=== PATIENT | female | born 2000 | race Two or more races ===

== ENCOUNTER 2024-11-07 18:20 | Emergency (ER) | payer MEDICAID, SELFPAY ==
[2024-11-07] VITALS (7 sets, daily range): BP systolic 106–119; BP diastolic 57–79; PULSE 60–104; RESP 13–22; TEMP 37.2–38.2; O2SAT 95–100; BMI 27.4
--- NOTE | 2024-11-07 18:20 | PC.NURSE ---
pt here with c/o body ache, headache, fever and chills that statred today and s/p on 10-11-24
--- NOTE | 2024-11-07 18:29 | XR_ITS ---
Examination: AP chest single view Technique one AP portable upright chest single view Standing time: 10 weight 32,025 1846 hours INDICATIONS: Sepsis today. FINDINGS: Suspicious for early right medial base pneumonia Normal heart size Intact osseous structures IMPRESSION: Suspicious for early right base pneumonia
--- NOTE | 2024-11-07 18:29 | EKG_ITS ---
[facility] Test Date: 2024-11-07 Pat Name: ANTHONY GOLDEN Department: Room: - Gender: Female Putty Patcher: : 2000 Requested By: Yohana Erazo Order Number: [id number] Reading MD: Yohana Erazo Measurements Intervals Richards Rate: 91 P: [place]: QRS: 83 QRSD: 96 T: 80 QT: 337 QTc: 416 Interpretive Statements ATRIAL FIBRILLATION MODERATE ST DEPRESSION [0.05+ mV ST DEPRESSION] Compared to ECG 05/31/2024 19:49:04 ST (T wave) deviation now present Sinus rhythm no longer present /store/S0/[id number]/ecg/[id number].pdf
--- NOTE | 2024-11-07 18:31 | PD.EDADULT ---
ED General RME/HPI General Chief complaint: Flu Like Symptoms Stated complaint: BODY PAIN,MACIAS, FEVER, CHILLS, S/P 10/11/24 Time Seen by Provider: 11/07/24 18:28 Arrival date/time: 11/07/24 18:20 RME / HPI RME / HPI narrative: 24-year-old female patient came in for evaluation regarding general body aches. Onset of symptoms about 3 hours prior to ER visit as generalized body aches, headache, nonproductive cough, chills, and in the triage was noted to have fever and tachycardic.'s maternal sepsis alert was initiated right away. Patient has section done 3 weeks ago. Denies any abdominal pain denies any dysuria denies any abnormal fall vaginal discharges. No medication was taken prior travel. Related Data Home Medications ?Medication ?Instructions ?Recorded ?Confirmed vit no.95-ferrous 1 tab PO QDAY 07/25/19 07/25/19 fumarate 28 mg-folic acid 800 mcg tablet () Previous Rx's ?Medication ?Instructions ?Recorded hydrocodone 5 mg-acetaminophen 325 1 tab PO QID PRN pain #30 tabs 07/27/19 mg tablet ([place]) artificial tears(hypromellose) 0.5 1 drp ophthalmic (eye) TID PRN dry 10/23/23 % eye drops (Tears Lubricant) eyes #15 mL pantoprazole 40 mg tablet,delayed 40 mg PO QDAY #14 tabs 04/16/24 release (Protonix) amoxicillin 875 mg-potassium 1 tab PO BID #14 tabs 11/07/24 clavulanate 125 mg tablet doxycycline hyclate 100 mg tablet 100 mg PO BID #14 tabs 11/07/24 ibuprofen 800 mg tablet 800 mg PO TID PRN pain #30 tabs 11/07/24 Allergies Allergy/AdvReac Type Severity Reaction Status Date / Time No Known Allergies Allergy Verified 11/07/24 18:29 Review of Systems Review of Systems Narrative Review of Systems: Review of system reviewed and within normal limits except mentioned in HPI ED Exam Narrative Physical exam: VITAL SIGNS: Reviewed. GENERAL APPEARANCE: Alert and interactive, follows commands, no acute distress, HEAD AND FACE: Non-traumatic. ENT: PERRL, pink conjunctivitis, eyelid no trauma, Mucous membrane moist. NECK: Supple, nontender, no nuchal rigidity. CHEST: No tenderness, no crepitus, no paradoxical movement, no retractions. LUNGS: Clear, well ventilated, symmetric, no rales, no wheezing, no ronchi, no stridor, good breath sounds bilaterally. HEART: Regular rate, regular rhythm, no murmur, no gallops. ABDOMEN: Soft, positive bowel sounds, nondistended, no guarding, nontender, no rebound, no masses, RECTAL: Deferred. GENITAL: Deferred. NEUROLOGICAL: Gross motor function intact sensory function intact, Appropriate for age. MUSCULOSKELETAL: low back nontender, full range of motion. EXTREMITIES: Nontender, full range of motion. SKIN: Color pink, dry, no rash, no lacerations, no abrasions, no contusions. LYMPHATICS: Deferred. Course Quality Measures none Orders Category Date Time Status Bedside COVID-19 Antigen Test NOW Care 11/07/24 18:29 Active Bedside Influenza A&B Antigen Test NOW Care 11/07/24 18:[address] Screening NOW Care 11/07/24 21:05 Active Senior Electronics Engineer STAT Care 11/07/24 18:29 Active Continuous Pulse Oximetry STAT Care 11/07/24 18:29 Completed EKG (ED ONLY) *Do not use* NOW Care 11/07/24 18:29 Completed Insert IV NOW Care 11/07/24 18:29 Active NPO STAT Care 11/07/24 18:29 Active Strict Intake and Output Routine Care 11/07/24 18:[address] abdomen pelvis w con Stat Exams 11/07/24 21:05 Completed EKG (ED Only) Stat Exams 11/07/24 18:29 Draft XR chest 1V SEPSIS PROTOCOL Stat Exams 11/07/24 18:29 Completed B-Type Natriuretic Peptide Stat Lab 11/07/24 18:46 Completed Blood Culture (Lab) Stat Lab 11/07/24 18:44 Received CBC Stat Lab 11/07/24 18:46 Completed Comprehensive Metabolic Panel Stat Lab 11/07/24 18:46 Completed LDH (Lactate Dehydrogenase) Stat Lab 11/07/24 18:46 Completed Lactate (Lactic Acid) Stat Lab 11/07/24 18:46 Completed Lipase Stat Lab 11/07/24 18:46 Completed Magnesium Stat Lab 11/07/24 18:46 Completed Partial Thromboplastin Time Stat Lab 11/07/24 18:46 Completed Phosphorous Stat Lab 11/07/24 18:46 Completed Procalcitonin Stat Lab 11/07/24 18:46 Completed Prothrombin Time with INR Stat Lab 11/07/24 18:46 Completed Troponin I Stat Lab 11/07/24 18:46 Completed Urinalysis Stat Lab 11/07/24 19:26 Completed Urine Culture Stat Lab 11/07/24 19:26 Received Ibuprofen Tab [Motrin Tab] Med 11/07/24 18:29 Discontinued 800 mg PO X1 ONE Sodium Chloride 0.9% 1000 ml [Ns] 1,000 ml Med 11/07/24 18:29 Discontinued IV 999 mls/hr cefTRIAXone/D5w 1gm IV premix [Rocephin/D5w 1gm IV Med 11/07/24 18:30 Discontinued premix] 50 ml IV X1 Oxygen Delivery NOW RT 11/07/24 18:29 Active Vital Signs Vital signs: Vital Signs Temperature 99.4 F 11/07/24 18:20 Pulse Rate 101 H 11/07/24 18:20 Respiratory Rate 17 11/07/24 18:20 Blood Pressure 110/73 11/07/24 18:20 Pulse Oximetry (%) 100 11/07/24 18:20 Oxygen Delivery Method Room Air 11/07/24 18:20 [facility] Patient data External records reviewed:: None Clinical information provided by:: patient Social determinants that could affect healthcare access:: none Patient has the following chronic illnesses:: None How is presenting disease/condition affected by chronic disease/condition?: no chronic disease Evaluation data The following diagnostics were reviewed and interpreted by me:: lab results, radiology exam(s) and EKG tracing(s) Lab and/or radiology exams considered but not ordered:: None Interpretation Summary: See results in [facility] Medications Medications considered but not ordered:: None Medication administrations:: Medication Administration History Discontinued Medications Sodium Chloride (Ns) 1,000 mls @ 999 mls/hr IV .Q1H1M ONE Stop: 11/07/24 19:29 Last Infusion: 11/07/24 19:35 Dose: Infused Documented By: Admin: 11/07/24 18:40 Dose: 999 mls/hr Documented By: DO Ceftriaxone Sodium/Dextrose (Rocephin/D5w 1gm Iv Premix) 50 mls @ 100 mls/hr IV X1 ONE Stop: 11/07/24 18:59 Last Infusion: 11/07/24 19:29 Dose: Infused Documented By: Admin: 11/07/24 18:45 Dose: 100 mls/hr Documented By: DO Ibuprofen (Ibuprofen Tab 400 Mg Tablet) 800 mg PO X1 ONE Stop: 11/07/24 18:30 Last Admin: 11/07/24 18:44 Dose: 800 mg Documented By: DO Ibuprofen, ceftriaxone IV, and IV fluids Consultations Consultation(s) initiated? (list below): No Diagnosis Differential Diagnosis ED Complaint MDM: Fever, maternal sepsis, UTI, pneumonia Most likely diagnosis given after review of the tests above:: Pneumonia, fever Admission Indicated Admission indicated?: not indicated Explain why admission is indicated or not indicated:: Stable Admission Request Was there a request for admission?: No Disposition Plan Disposition Plan: Discharge Discharge Attestation Discharge Attestation: The patient and all family members were given an opportunity to ask questions and understood the discharge instructions. Discharge instructions specifically effects, indications for sooner follow up or return to the emergency department, and the expected course of current diagnosis. Patient condition: Stable Medical Decision Making MDM Narrative MDM Narrative: 24-year-old female patient came in for evaluation regarding general body aches. Onset of symptoms about 3 hours prior to ER visit as generalized body aches, headache, nonproductive cough, chills, and in the triage was noted to have fever and tachycardic.'s maternal sepsis alert was initiated right away. Patient has section done 3 weeks ago. Denies any abdominal pain denies any dysuria denies any abnormal fall vaginal discharges. No medication was taken prior travel. Patient CBC showed leukocytosis of 14.5. Urinalysis no UTI the rest of the labs unremarkable. CT scan of the abdomen pelvis came back unremarkable. Chest x-ray showed early pneumonia. EKG showed sinus rhythm, ventricular rate of 87 bpm, no ST segment elevation depression noted. Prior to discharge. Patient was noted to be afebrile and denies any complaints. Patient received IV fluids, IV ceftriaxone, and Motrin. Patient appears nontoxic and hemodynamically stable. Patient discharged home and instructed to follow-up with primary care provider in 24 to 48 hours. Instructed to return to the emergency department immediately if worsening of symptoms Differential Diagnosis Differential Diagnosis: Fever, maternal sepsis, UTI, pneumonia Lab Data 11/07/24 18:46 11/07/24 18:46 Labs: Lab Results 11/07/24 11/07/24 Range/Units 18:46 19:26 WBC 14.5 H (3.6-11.0) Thou/mm3 RBC 4.50 (4.00-5.20) Miln/mm3 Hgb 13.6 (12.0-16.0) g/dL Hct 39.2 (36.0-46.0) % MCV 87 (80-100) fL MCH 30.2 (25.0-35.0) pg MCHC 34.7 (31.0-37.0) g/dl RDW Std Deviation 40.2 (36.4-46.3) fL Plt Count 287 (140-440) Thou/mm3 Neut % (Auto) 78 (37-80) % Lymph % (Auto) 16 (10-50) % [place] % (Auto) 5 (0-12) % Eos % (Auto) 1 (0-10) % Baso % (Auto) 0 (0-2.5) % Neut # (Auto) 11.4 H (1.8-7.7) Thou/mm3 Lymph # (Auto) 2.3 (1.0-4.8) Thou/mm3 [place] # (Auto) 0.7 (0.0-0.8) Thou/mm3 Eos # (Auto) 0.1 (0.0-0.5) Thou/mm3 Baso # (Auto) 0.0 (0.0-0.2) Thou/mm3 Immature Gran # (Auto) 0.05 H (0.00-0.00) Thou/mm3 Absolute Nucleated RBC 0.00 (0.00-0.00) Thou/mm3 Immature Gran % 0 (0-0) % Nucleated RBC % 0 (0) /100 WBC PT 10.8 (9.0-12.2) Seconds INR 1.0 (0.9-1.3) APTT 27.2 (22.0-36.0) Seconds Sodium 140 (136-145) mMol/L Potassium 3.4 (3.4-5.1) mMol/L Chloride 105 (98-107) mMol/L Carbon Dioxide 25.9 (20.0-31.0) mMol/L Anion Gap 9 (7-16) BUN 11 (9-23) mg/dL Creatinine 0.7 (0.6-1.3) mg/dL Estim Creat Clear Calc 114.0 (>60) mL/min eGFR > 60 (60 - ) See Note BUN/Creatinine Ratio 16 (12-20) Ratio Glucose 81 (74-106) mg/dL Calculated Osmolality 277 (275-295) Lactic Acid 1.6 (0.4-2.0) mMol/L Calcium 9.4 (8.3-10.6) mg/dL Corrected Calcium 9.4 (8.5-10.1) mg/dL Phosphorus 3.4 (2.4-5.1) mg/dL Magnesium 1.8 (1.6-2.6) mg/dL Total Bilirubin 0.7 (0.3-1.2) mg/dL AST 35 H (0-34) U/L ALT 30 (10-49) U/L Alkaline Phosphatase 186 H (46-116) U/L Lactate Dehydrogenase 205 (120-246) U/L Troponin I < 0.002 (0.0-0.045) ng/mL B-Natriuretic Peptide 21 (0-100) pg/mL Total Protein 7.5 (5.7-8.2) gm/dL Albumin 4.6 (3.5-5.0) gm/dL Globulin 2.9 (2.3-3.5) gm/dL Albumin/Globulin Ratio 1.6 (1.2-2.2) Lipase 71 H (12-53) U/L Procalcitonin < 0.04 (0.0-0.49) ng/ml Ur Collection Type Clean Catch Urine Color Colorless A (Lt Yel-Yel) Urine Clarity Clear (Clear/Hazy) Urine pH 6.0 (5.0-7.0) Ur Specific [place] 1.009 (1.001-1.035) Urine Protein Negative (Neg - Trace) Urine Glucose (UA) Negative (Negative) Urine Ketones Negative (Negative) Urine Blood Negative (Negative) Urine Nitrite Negative (Negative) Urine Bilirubin Negative (Negative) Urine Urobilinogen (Auto) Negative (0.0-1.0) mg/dL Ur Leukocyte Esterase Positive (Negative) Urine RBC 2 (0-3) /hpf Urine WBC 2 (0-5) /hpf Ur Squamous Epith Cells 1 (0-5) /hpf Urine Bacteria None (None) Discharge Plan Plan Patient Disposition: HOME (Self Care) Disposition Comment: stable Prescriptions/Referrals Prescriptions/Med Rec: New amoxicillin-pot clavulanate 875-125 mg tablet 1 tab PO BID Qty: 14 0RF doxycycline hyclate 100 mg tablet 100 mg PO BID Qty: 14 0RF ibuprofen 800 mg tablet 800 mg PO TID PRN (Reason: pain) Qty: 30 0RF No Action PNV cmb#95-ferrous fumarate-FA [] 28 mg iron- 800 mcg Tablet 1 tab PO QDAY hydrocodone-acetaminophen [[place]] 5-325 mg tablet 1 tab PO QID MDD 6 PRN (Reason: pain) Qty: 30 0RF Rx Instructions: NotToExceed APAP: 15 mg/kg OR 1000 mg/dose AND 4000 mg /24 hrs Tears Lubricant Eye Drop 0.5 % drops 1 drp ophthalmic (eye) TID PRN (Reason: dry eyes) Qty: 15 0RF pantoprazole [Protonix] 40 mg tablet,delayed release (DR/EC) 40 mg PO QDAY Qty: 14 0RF Referrals: Ac Henry MD [Primary Care Provider] - In 1 week Problem List Clinical Impression: Fever, PNA (pneumonia) Patient/Caregiver Discharge Instructions Discharge Activity: activity as tolerated Education Materials: What Is Pneumonia? Additional Instructions: Thank you for the opportunity for serving you today. You are stable for discharged . You are advised to: Follow-up with your PCP in 1 to 2 days Return to ED for worsening of symptoms Increase oral fluids Take medication as prescribed Print Language: Malaysian Stand Alone Forms: Rachana Award Info., Patient Portal Info Letter PA/MAYTE Supervising Physician PA/MAYTE Supervising Physician: MD Jesus
[2024-11-07] MEDS: SODIUM CHLORIDE 0.9% 1000 ML 1,000 ML 999 ML IV (18:40)
[2024-11-07] MEDS: IBUPROFEN TAB 400 MG TABLET 800 MG PO (18:44)
[2024-11-07] MEDS: cefTRIAXone/D5w 1gm IV premix 50 ML IV (18:45)
[2024-11-07 18:59] LABS: Lactate (Lactic Acid) 1.6 mMol/L (0.4-2.0)
[2024-11-07 19:07] LABS: Basophils % (Auto) 0 % (0-2.5); Eosinophils # (Auto) 0.1 Thou/mm3 (0.0-0.5); Eosinophils % (Auto) 1 % (0-10); Hematocrit 39.2 % (36.0-46.0); Hemoglobin 13.6 g/dL (12.0-16.0); Immature Granulocytes % (Auto) 0 % (0-0); Immature Granulocytes Auto 0.05 Thou/mm3 (0.00-0.00); Lymphocytes # (Auto) 2.3 Thou/mm3 (1.0-4.8); Lymphocytes % (Auto) 16 % (10-50); Mean Corpuscular HGB Conc 34.7 g/dl (31.0-37.0); Mean Corpuscular Hemoglobin 30.2 pg (25.0-35.0); Mean Corpuscular Volume 87 fL (80-100); Monocytes # (Auto) 0.7 Thou/mm3 (0.0-0.8); Monocytes % (Auto) 5 % (0-12); Neutrophils # (Auto) 11.4 Thou/mm3 (1.8-7.7); Neutrophils % (Auto) 78 % (37-80); Nucleated Red Blood Cell % 0 /100 WBC (0); Platelet Count 287 Thou/mm3 (140-440); RDW Standard Deviation 40.2 fL (36.4-46.3); White Blood Count 14.5 Thou/mm3 (3.6-11.0)
[2024-11-07 19:31] LABS: Collection Type, Urine Clean Catch
[2024-11-07 19:34] LABS: Partial Thromboplastin Time 27.2 Seconds (22.0-36.0); Prothrombin Time 10.8 Seconds (9.0-12.2)
[2024-11-07 19:42] LABS: B-Type Natriuretic Peptide 21 pg/mL (0-100)
[2024-11-07 19:49] LABS: Bilirubin,Urine Negative (Negative); Blood,Urine Negative (Negative); Clarity,Urine Clear (Clear/Hazy); Color,Urine Colorless (Lt Yel-Yel); Glucose, Urine Negative (Negative); Ketones,Urine Negative (Negative); Leukocyte Esterase,Urine Positive (Negative); Nitrite,Urine Negative (Negative); Protein,Urine Negative (Neg - Trace); RBC,Urine 2 /hpf (0-3); Specific Gravity,Urine 1.009 (1.001-1.035); Squamous Epithelial Cell,Urine 1 /hpf (0-5); Urobilinogen,Urine Negative mg/dL (0.0-1.0); WBC,Urine 2 /hpf (0-5)
[2024-11-07 19:49] LABS: Alanine Aminotransferase 30 U/L (10-49); Albumin, Serum 4.6 gm/dL (3.5-5.0); Albumin/Globulin Ratio 1.6 (1.2-2.2); Alkaline Phosphatase 186 U/L (46-116); Anion Gap 9 (7-16); Aspartate Amino Transferase 35 U/L (0-34); BUN/Creatinine Ratio 16 Ratio (12-20); Bilirubin,Total 0.7 mg/dL (0.3-1.2); Blood Urea Nitrogen 11 mg/dL (9-23); Calcium 9.4 mg/dL (8.3-10.6); Calcium (Corrected) 9.4 mg/dL (8.5-10.1); Carbon Dioxide 25.9 mMol/L (20.0-31.0); Chloride 105 mMol/L (98-107); Creatinine (Component) 0.7 mg/dL (0.6-1.3); Globulin 2.9 gm/dL (2.3-3.5); Glucose 81 mg/dL (74-106); Lipase 71 U/L (12-53); Magnesium 1.8 mg/dL (1.6-2.6); Osmolality,Calculated 277 (275-295); Phosphorous 3.4 mg/dL (2.4-5.1); Potassium 3.4 mMol/L (3.4-5.1); Procalcitonin < 0.04 ng/ml (0.0-0.49); Sodium 140 mMol/L (136-145); Total Protein 7.5 gm/dL (5.7-8.2); Troponin I < 0.002 ng/mL (0.0-0.045); eGFR > 60 See Note
[2024-11-07 20:02] LABS: LDH (Lactate Dehydrogenase) 205 U/L (120-246)
--- NOTE | 2024-11-07 21:05 | XR_ITS ---
Examination: CT abdomen with intravenous contrast CT pelvis with intravenous contrast 2-D coronal reconstructions 2-D sagittal reconstructions Date and time of exam:November 07, 2024 10:25 PM INDICATIONS: fever abdominal pain 3 weeks. CTDI: vol (mGy) 7.56 DLP: (mGycm) 430 Technique: Multiple axial sections of the abdomen and pelvis have been obtained. 64 slice high-resolution scanner used. 3 mm axial sections have been obtained, post intravenous injection of 60 cc [id number] 2-D sagittal, coronal reconstructions obtained. Low dose protocols were performed. One or more of the following dose reduction techniques were used; automated exposure control, adjustment of the mA and/or KV according to patient size, use of iterative reconstruction technique. Findings: No focal liver or splenic lesions No gallstones No pancreatic or adrenal mass No renal or ureteral calculi, no hydronephrosis Normal appendix No bowel obstruction No diverticulitis No uterine or adnexal mass No pelvic abscess Intact urinary bladder Osseous structures intact IMPRESSION: No renal or ureteral calculi, no pyelonephritis Normal appendix No bowel obstruction diverticulitis or free air
== END 2024-11-07 23:46 | disposition home or self-care (01) ==
PROVIDERS: Nurse Practitioner Family; Emergency Provider Emergency Medicine; PCP Obstetrics & Gynecology
DX: J18.9 Pneumonia, unspecified organism (principal); R10.9 Unspecified abdominal pain
CPT/HCPCS: 36415; 71045; 74177; 80053; 81001; 83605; 83615; 83690; 83735; 83880; 84100; 84145; 84484; 85025; 85610; 85730; 87040; 87086; 87400; 87811; 93005; 96365; 99285; A4649; J0696; J7030; Q9967; A9270